=== PATIENT | female | born 1930 | race Two or more races ===

== ENCOUNTER 2018-07-27 10:26 | Outpatient (CLI) | payer OTHER ==
[~2018-07-27 10:26] MED LIST: CLONAZEPAM2 MG PO; DICLOFENAC SODI50 MG PO; GAVISCON 80-141 EACH PO; KETO10TA2 PO; MEDROLPACK PO; PEPCID20 MG PO
== END 2018-07-27 10:33 | disposition home or self-care (01) ==
LOC: MAMO-SONO 10:26
DX: Z12.31 Encounter for screening mammogram for malignant neoplasm of breast (principal); Z87.898 Personal history of other specified conditions; N64.89 Other specified disorders of breast

== ENCOUNTER 2018-10-24 15:27 | Outpatient (CLI) | payer OTHER | END 2018-10-24 15:44 | disposition home or self-care (01) | LOC: LAB 15:27 | DX: N32.81 Overactive bladder (principal); N31.8 Other neuromuscular dysfunction of bladder; M05.89 Other rheumatoid arthritis with rheumatoid factor of multiple sites; M25.551 Pain in right hip; M25.552 Pain in left hip; F41.1 Generalized anxiety disorder; F33.3 Major depressive disorder, recurrent, severe with psychotic symptoms; I11.9 Hypertensive heart disease without heart failure; N39.42 Incontinence without sensory awareness; D43.2 Neoplasm of uncertain behavior of brain, unspecified; Q85.03 Schwannomatosis; I31.3 Pericardial effusion (noninflammatory); R00.2 Palpitations; R42 Dizziness and giddiness; Z12.11 Encounter for screening for malignant neoplasm of colon; E55.9 Vitamin D deficiency, unspecified; K58.8 Other irritable bowel syndrome; I70.0 Atherosclerosis of aorta; I51.7 Cardiomegaly; I34.0 Nonrheumatic mitral (valve) insufficiency; I36.1 Nonrheumatic tricuspid (valve) insufficiency ==

== ENCOUNTER → 2018-10-24 | Outpatient (CLI) | payer OTHER | END | disposition home or self-care (01) | LOC: RAD 13:07 | DX: M25.551 Pain in right hip (principal); M25.552 Pain in left hip; N32.81 Overactive bladder; N31.8 Other neuromuscular dysfunction of bladder; M05.8 Other rheumatoid arthritis with rheumatoid factor; M05.852 Other rheumatoid arthritis with rheumatoid factor of left hip; F41.1 Generalized anxiety disorder; F33.3 Major depressive disorder, recurrent, severe with psychotic symptoms; I11.9 Hypertensive heart disease without heart failure; N39.42 Incontinence without sensory awareness; D43.2 Neoplasm of uncertain behavior of brain, unspecified; Q85.03 Schwannomatosis; K58.8 Other irritable bowel syndrome; I70.0 Atherosclerosis of aorta; I51.7 Cardiomegaly; I34.0 Nonrheumatic mitral (valve) insufficiency; I36.1 Nonrheumatic tricuspid (valve) insufficiency; I31.3 Pericardial effusion (noninflammatory); M54.2 Cervicalgia ==

== ENCOUNTER 2019-08-22 10:30 | Outpatient (CLI) | payer OTHER | END 2019-08-22 10:44 | disposition home or self-care (01) | LOC: MAMO-SONO 10:30 | DX: Z12.31 Encounter for screening mammogram for malignant neoplasm of breast (principal); Z87.898 Personal history of other specified conditions; Z12.39 Encounter for other screening for malignant neoplasm of breast ==

== ENCOUNTER 2022-08-30 05:30 | Day surgery (SDC) | payer OTHER ==
[~2022-08-30] VITALS: Ht 157.5 cm; Wt 63.5 kg
[2022-08-30] MEDS ORDERED: PERCOCET 5-3251 EACH PO (09:53)
[2022-08-30] MEDS ORDERED: DUI500 PO (09:53)
[2022-08-31] MEDS ORDERED: GLUMETZA500 MG (08:54)
[2022-08-31] MEDS ORDERED: LEVOTHYROXINE25 MCG (08:54)
[2022-08-31] MEDS ORDERED: ZESTRIL20 MG (08:54)
== END 2022-08-30 12:40 | disposition home or self-care (01) ==
LOC: CIR.AMB 05:30
PROVIDERS: ATTEND Orthopaedic Surgery
DX: S52.531A Colles' fracture of right radius, initial encounter for closed fracture (principal); S52.691A Other fracture of lower end of right ulna, initial encounter for closed fracture; T84.84XA Pain due to internal orthopedic prosthetic devices, implants and grafts, initial encounter; M81.0 Age-related osteoporosis without current pathological fracture; F17.210 Nicotine dependence, cigarettes, uncomplicated; Z96.698 Presence of other orthopedic joint implants; Z20.822 Contact with and (suspected) exposure to COVID-19; Z88.2 Allergy status to sulfonamides; Z88.6 Allergy status to analgesic agent
CPT/HCPCS: 20680; 20902; 25120; 25609; 25652; 29075; L8699

== ENCOUNTER 2022-09-17 14:02 | Emergency (ER) | payer OTHER ==
[~2022-09-17] VITALS: Ht 157.5 cm; Wt 72.6 kg
[~2022-09-17 14:02] MED LIST changes: +DUI500 PO; +GLUMETZA500 MG; +LEVOTHYROXINE25 MCG; +PERCOCET 5-3251 EACH PO; +ZESTRIL20 MG
== END 2022-09-17 15:31 | disposition home or self-care (01) ==
LOC: ER 14:02
DX: K59.00 Constipation, unspecified (principal); E11.9 Type 2 diabetes mellitus without complications; Z79.84 Long term (current) use of oral hypoglycemic drugs; Z88.6 Allergy status to analgesic agent; Z88.2 Allergy status to sulfonamides; Z88.8 Allergy status to other drugs, medicaments and biological substances